=== PATIENT | male | born 1990 | race Caucasian/White ===

== ENCOUNTER 2017-05-21 21:11 | Emergency (ER) | payer BC, OTHER ==
[~2017-05-21] VITALS: Ht 185.4 cm; Wt 100.0 kg
[2017-05-21] MEDS ORDERED: EXCETAB49 PO (21:21)
[2017-05-21 21:57] VITALS: BP 172/86
[2017-05-21] MEDS ORDERED: NORCOTAB PO (21:57)
[2017-05-21] MEDS ORDERED: AMOX500C PO (21:57)
[2017-05-21] MEDS ORDERED: AMOXICILLIN 500 MG CAP PO ONE (22:00)
[2017-05-21] MEDS ORDERED: NORCO 5/325MG TABLET (BULK FOR ED) PO ONE (22:00)
== END 2017-05-21 22:06 | disposition home or self-care (01) ==
LOC: M ED 21:11
DX: K13.79 Other lesions of oral mucosa (principal); K08.89 Other specified disorders of teeth and supporting structures; F17.200 Nicotine dependence, unspecified, uncomplicated; J30.2 Other seasonal allergic rhinitis

== ENCOUNTER → 2021-07-19 | Outpatient (REF) ==
[~2021-07-19] MED LIST: AMOX500C PO; EXCETAB49 PO; HYDR-3715 PO
== END ==
LOC: M LABSMTC 10:52
PROVIDERS: ATTEND Pediatrics
DX: Z11.52 Encounter for screening for COVID-19 (principal)

== ENCOUNTER → 2021-10-25 | Outpatient (CLI) | payer BC | LOC: M WUC 11:45 | PROVIDERS: ATTEND Physician Assistant | DX: M25.562 Pain in left knee (principal) ==

== ENCOUNTER 2022-01-14 15:09 | Outpatient (RCR) | payer BC | END 2022-01-20 | LOC: M PT 15:09 | PROVIDERS: ATTEND Orthopaedic Surgery | DX: M23.304 Other meniscus derangements, unspecified medial meniscus, left knee (principal) ==

== ENCOUNTER 2022-01-31 14:15 | Outpatient (RCR) | payer BC | END 2022-02-20 | LOC: M PT 14:15 | PROVIDERS: ATTEND Orthopaedic Surgery | DX: M23.304 Other meniscus derangements, unspecified medial meniscus, left knee (principal); M25.562 Pain in left knee ==

== ENCOUNTER → 2022-03-01 | Outpatient (REF) | LOC: M EMP 12:42 | PROVIDERS: ATTEND Family Medicine | DX: Z20.822 Contact with and (suspected) exposure to COVID-19 (principal) ==

== ENCOUNTER → 2023-10-18 | Outpatient (REF) | LOC: M EMP 10:05 | PROVIDERS: ATTEND Family Medicine | DX: Z11.52 Encounter for screening for COVID-19 (principal) ==

== ENCOUNTER → 2024-02-17 | Outpatient (REF) | LOC: M EMP 10:16 | PROVIDERS: ATTEND Family Medicine | DX: Z11.52 Encounter for screening for COVID-19 (principal) ==

== ENCOUNTER → 2024-02-20 | Outpatient (REF) | LOC: M EMP 12:03 | PROVIDERS: ATTEND Family Medicine | DX: Z11.52 Encounter for screening for COVID-19 (principal) ==

== ENCOUNTER → 2024-03-23 | Outpatient (REF) | LOC: M EMP 09:43 | PROVIDERS: ATTEND Family Medicine | DX: Z11.52 Encounter for screening for COVID-19 (principal) ==

== ENCOUNTER → 2024-03-29 | Outpatient (REF) | LOC: M EMP 07:48 | PROVIDERS: ATTEND Family Medicine | DX: Z11.52 Encounter for screening for COVID-19 (principal) ==

== ENCOUNTER → 2024-09-07 | Outpatient (REF) | LOC: M EMP 09:48 | PROVIDERS: ATTEND Family Medicine | DX: Z11.52 Encounter for screening for COVID-19 (principal) ==